=== PATIENT | female | born 1995 | race Caucasian/White ===

== ENCOUNTER → 2019-11-25 10:49 | Outpatient (CLI) | payer OTHER, SELFPAY ==
--- NOTE | 2019-11-25 | DI.US.S_ITS ---
PROCEDURE: US PELVIC COMPLETE INDICATIONS: PELVIC PAIN TECHNIQUE: Real-time scanning was performed of the pelvic organs, with image documentation. Additional endovaginal scanning was necessary due to incomplete visualization of the adnexal and endometrial structures by transabdominal scanning. COMPARISON: None. FINDINGS: Transabdominal scanning: Limited scanning through the kidneys shows no hydronephrosis. No pathologic free abdominal or pelvic fluid. Endovaginal scanning: Uterus: Retroverted uterus is normal in size at 5.4 x 3.6 x 5.0 cm. The endometrium measures 11 mm in combined thickness. Ovaries: Right ovary measures 3.4 x 2.3 x 2.2 cm and is unremarkable. Left ovary measures 3.8 x 3.0 x 2.6 cm, and there is a presumed physiologic dominant follicle measuring 2.2 x 2.1 x 1.1 cm IMPRESSION: Overall, grossly unremarkable examination. Presumed left ovarian physiologic dominant follicle Dictated by: Wayne Xie M.D. on 11/25/2019 at 14:08 Approved by: Wayne Xie M.D. on 11/25/2019 at 14:11
== END ==
PROVIDERS: PCP Naturopath; Referring Provider Naturopath; Visit Provider Specialist
DX: R10.2 Pelvic and perineal pain (principal); R39.89 Other symptoms and signs involving the genitourinary system
CPT/HCPCS: 76830; 76856